=== PATIENT | female | born 1945 | race Caucasian/White ===

== ENCOUNTER 2020-07-23 07:07 | Inpatient (IN) | payer MEDICARE ==
[~2020-07-23 07:07] MED LIST: Povidone-Iodine 10% Soln 118.25 ML Bottle ONE
[2020-07-23] MEDS ORDERED: Midazolam 1 MG/ML 2 ML SDV ONE ×2 (07:28→12:34)
[2020-07-23] MEDS ORDERED: fentaNYL 100 MCG/2 ML SDV ONE ×4 (07:28→13:10)
[2020-07-23] MEDS ORDERED: Propofol 200 MG/20 ML SDV ONE ×4 (07:28→12:44)
[2020-07-23] MEDS ORDERED: Lactated Ringers 1,000 ML IV SCH (07:30)
[2020-07-23] MEDS: Nozin Nasal Sanitizer NASBOTH SCH ×2 (07:59→20:21)
[2020-07-23] MEDS ORDERED: ceFAZolin 2 GM in Premix Bag 1 BAG IV ONE (08:30)
[2020-07-23] MEDS ORDERED: Lactated Ringers 1,000 ML ONE (12:37)
[2020-07-23] MEDS ORDERED: Acetaminophen/HYDROcodone 325-5 MG Tab PO PRN (14:05)
[2020-07-23] MEDS ORDERED: Morphine 2 MG/ML SYRINGE IVPUSH PRN (14:05)
[2020-07-23] MEDS ORDERED: Acetaminophen 325 MG Tab PO PRN (14:05)
[2020-07-23] MEDS ORDERED: FAMCICLOVIR 1500 MG PO PRN (14:12)
[2020-07-23] MEDS: Acetaminophen/oxyCODONE 325-5 MG Tab PO PRN (15:02)
--- NOTE | 2020-07-23 15:02 | CR ---
Knee 1V or 2V Rt CLINICAL HISTORY: Postop FINDINGS: Patient is status post recent 3 component total arthroplasty. Components appear well seated. There is intra-articular subcutaneous air. Impression: Status post total knee arthroplasty
[2020-07-23] MEDS: Ketorolac 30 MG/ML SDV IVPUSH SCH (16:43)
[2020-07-23] MEDS: ceFAZolin 1 GM in Premix Bag 1 BAG IV SCH (17:26)
[2020-07-23] MEDS: Sodium Chloride 0.9% 1,000 ML IV SCH (18:30)
[2020-07-23] MEDS: Docusate Sodium 100 MG Cap PO SCH (20:21)
[2020-07-23] MEDS ORDERED: Nozin Nasal Sanitizer NASBOTH SCH (21:00)
[2020-07-24] MEDS: Ketorolac 30 MG/ML SDV IVPUSH SCH ×4 (02:01→23:55)
[2020-07-24] MEDS: ceFAZolin 1 GM in Premix Bag 1 BAG IV SCH ×2 (02:01→08:50)
[2020-07-24] MEDS: Sodium Chloride 0.9% 1,000 ML IV SCH (02:03)
[2020-07-24] MEDS: Acetaminophen/oxyCODONE 325-5 MG Tab PO PRN ×3 (06:05→20:07)
[2020-07-24] MEDS: Nozin Nasal Sanitizer NASBOTH SCH ×2 (08:51→20:10)
[2020-07-24] MEDS: Enoxaparin 30 MG/0.3 ML Syringe SUBCUT SCH (08:52)
[2020-07-24] MEDS: Docusate Sodium 100 MG Cap PO SCH ×2 (08:52→20:11)
--- NOTE | 2020-07-24 15:14 | PCM.SURGPN ---
- General Info Date of Service: 07/24/20 Date of Surgery/Procedure: 07/23/20 POD#: 1 Post-Op Diagnosis: Right Knee Osteoarthritis Functional Status: Reports: Pain Controlled, Tolerating Diet, Ambulating, Urinating - Review of Systems General: Reports: No Symptoms HEENT: Reports: No Symptoms Pulmonary: Reports: No Symptoms Cardiovascular: Reports: No Symptoms Gastrointestinal: Reports: No Symptoms Genitourinary: Reports: No Symptoms Musculoskeletal: Reports: Joint Pain (Right Knee ) Skin: Reports: No Symptoms Neurological: Reports: No Symptoms Psychiatric: Reports: No Symptoms - Patient Data Vitals - Most Recent: Last Vital Signs Temp 97.7 F 07/24/20 11:15 Pulse 77 07/24/20 11:15 Resp 16 07/24/20 11:15 BP 128/56 L 07/24/20 11:15 Pulse Ox 96 07/24/20 11:15 Weight - Most Recent: 144 lb I&O - Last 24 Hours: Intake & Output 07/24/20 07/24/20 07/24/20 06:59 14:59 22:59 Intake Total 650 1000 Output Total 400 1450 Balance 250 -450 Lab Results Last 24 Hrs: Laboratory Results - last 24 hr 07/24/20 Range/Units 05:00 WBC 5.2 (4.5-11.0) K/uL RBC 3.08 L (3.30-5.50) M/uL Hgb 8.4 L (12.0-15.0) g/dL Hct 26.6 L (36.0-48.0) % MCV 86 (80-98) fL MCH 27 (27-31) pg MCHC 32 (32-36) % Plt Count 300 (150-400) K/uL Neut % (Auto) 60 (36-66) % Lymph % (Auto) 22 L (24-44) % [place] % (Auto) 18 H (2-6) % Eos % (Auto) 1 L (2-4) % Baso % (Auto) 0 (0-1) % Med Orders - Current: Current Medications Acetaminophen (Tylenol) 650 mg PO Q4H PRN PRN Reason: Pain/Fever Hydrocodone Bitart/Acetaminophen ([place] 325-5 Mg) 2 tab PO Q4H PRN PRN Reason: Pain (mild 1-3) Bandage/Support Products ( Nasal Performance Engineer) 1 applic NASBOTH BID ON LICENSE OF [facility] Stop: 07/29/20 21:01 Last Admin: 07/24/20 08:51 Dose: 1 applic Documented by: Docusate Sodium (Colace) 100 mg PO BID ON LICENSE OF [facility] Last Admin: 07/24/20 08:52 Dose: 100 mg Documented by: Enoxaparin Sodium (Lovenox) 30 mg SUBCUT DAILY ON LICENSE OF [facility] Last Admin: 07/24/20 08:52 Dose: 30 mg Documented by: Ketorolac Tromethamine (Toradol) 15 mg IVPUSH Q8H ON LICENSE OF [facility] Stop: 07/25/20 08:01 Last Admin: 07/24/20 08:51 Dose: 15 mg Documented by: Morphine Sulfate (Morphine) 2 mg IVPUSH Q1H PRN PRN Reason: Breakthrough Pain Famciclovir 1,500 Mg (Ptom) 0 mg PO ASDIRECTED PRN PRN Reason: cold sore Oxycodone/Acetaminophen (Percocet 325-5 Mg) 1 - 2 tab PO Q4H PRN PRN Reason: Pain (moderate 4-6) Last Admin: 07/24/20 11:14 Dose: 2 tab Documented by: Discontinued Medications Fentanyl (Sublimaze) Confirm Administered Dose 100 mcg .ROUTE .STK-MED ONE Stop: 07/23/20 07:29 Fentanyl (Sublimaze) Confirm Administered Dose 100 mcg .ROUTE .STK-MED ONE Stop: 07/23/20 12:35 Fentanyl (Sublimaze) Confirm Administered Dose 100 mcg .ROUTE .STK-MED ONE Stop: 07/23/20 12:44 Fentanyl (Sublimaze) Confirm Administered Dose 100 mcg .ROUTE .STK-MED ONE Stop: 07/23/20 13:11 Lactated Ringer's (Ringers, Lactated) 1,000 mls @ 75 mls/hr IV ASDIRECTED ON LICENSE OF [facility] Last Admin: 07/23/20 08:28 Dose: 75 mls/hr Documented by: Cefazolin Sodium/Dextrose 2 gm (/ Premix) 50 mls @ 100 mls/hr IV ONETIME ONE Stop: 07/23/20 08:59 Last Admin: 07/23/20 10:21 Dose: 100 mls/hr Documented by: Lactated Ringer's (Ringers, Lactated) Confirm Administered Dose 1,000 mls @ as directed .ROUTE .STK-MED ONE Stop: 07/23/20 12:38 Sodium Chloride (Normal Saline) 1,000 mls @ 125 mls/hr IV ASDIRECTED ON LICENSE OF [facility] Last Admin: 07/24/20 02:03 Dose: 125 mls/hr Documented by: Cefazolin Sodium/Dextrose 1 gm (/ Premix) 50 mls @ 100 mls/hr IV Q8H ON LICENSE OF [facility] Stop: 07/24/20 09:29 Last Admin: 07/24/20 08:50 Dose: 100 mls/hr Documented by: Midazolam HCl (Versed 1 Mg/Ml) Confirm Administered Dose 2 mg .ROUTE .STK-MED ONE Stop: 07/23/20 07:29 Midazolam HCl (Versed 1 Mg/Ml) Confirm Administered Dose 2 mg .ROUTE .STK-MED ONE Stop: 07/23/20 12:35 Povidone Iodine (Betadine 10% Soln) Confirm Administered Dose 1 ml .ROUTE .STK- MED ONE Stop: 07/23/20 06:54 Last Admin: 07/23/20 11:00 Dose: 30 ml Documented by: Propofol (Diprivan 20 Ml) Confirm Administered Dose 200 mg .ROUTE .STK-MED ONE Stop: 07/23/20 07:29 Propofol (Diprivan 20 Ml) Confirm Administered Dose 200 mg .ROUTE .STK-MED ONE Stop: 07/23/20 10:45 Propofol (Diprivan 20 Ml) Confirm Administered Dose 200 mg .ROUTE .STK-MED ONE Stop: 07/23/20 12:16 Propofol (Diprivan 20 Ml) Confirm Administered Dose 200 mg .ROUTE .STK-MED ONE Stop: 07/23/20 12:45 - Exam Wound/Incisions: Dressing Dry and Intact, No Drainage General: Alert, Oriented, Cooperative Extremities: Joint Swelling (Right Knee ), Limited Range of Motion (Right Knee ) Skin: Dry, Intact Neurological: No New Focal Deficit Psy/Mental Status: Alert, Normal Affect, Normal Mood Sepsis Event Note - Evaluation Sepsis Screening Result: No Definite Risk - Focused Exam Vital Signs: Vital Signs Temp Pulse Resp BP Pulse Ox 07/24/20 11:15 97.7 F 77 16 128/56 L 96 07/24/20 07:17 98.2 F 81 18 108/54 L 94 L - Problem List & Annotations (1) Status post total knee replacement SNOMED Code(s): 1652838883006, 717003693, 5584789787993 Code(s): Z96.659 - PRESENCE OF UNSPECIFIED ARTIFICIAL KNEE JOINT Status: Acute Current Visit: Yes Qualifiers: Laterality: right Qualified Code(s): Z96.651 - Presence of right artificial knee joint - Problem List Review Problem List Initiated/Reviewed/Updated: Yes - My Orders Last 24 Hours: Active Orders 24 hr Category Date Time Status Admission Status [Patient Status] [ADT] Routine ADT 07/24/20 14:06 Active Ambulate [RC] QID Care 07/23/20 14:05 Active Antiembolic Devices [RC] .Routine Care 07/23/20 14:06 Active Head of Bed Elevation [RC] ASDIRECTED Care 07/23/20 14:05 Active May Shower [RC] ASDIRECTED Care 07/23/20 14:05 Active Neurovascular Check [RC] Q4H Care 07/23/20 14:05 Active Notify Provider Vital Signs [RC] ASDIRECTED Care 07/23/20 14:05 Active Oxygen Therapy [RC] PRN Care 07/23/20 14:05 Active Pneumonia Education [RC] UPON Care 07/23/20 14:05 Active RT Incentive Spirometry [RC] Q1HWA Care 07/23/20 14:05 Active Remove Multani Catheter [Urinary Catheter Removal] [RC] Care 07/24/20 14:34 Active PER UNIT ROUTINE Up to Chair [RC] QID Care 07/23/20 14:05 Active VTE/DVT Education [RC] Click to Edit Care 07/23/20 14:06 Active Vital Signs [RC] PER UNIT ROUTINE Care 07/23/20 14:05 Active Wound Care [RC] Q12H Care 07/23/20 14:05 Active Consult to Case Management/Hydroelectric Plant Maintainer [CONS] Cons 07/23/20 14:05 Active Routine OT Evaluation and Treatment [CONS] Routine Cons 07/23/20 14:05 Active PT Evaluation and Treatment [CONS] Routine Cons 07/23/20 14:05 Active PT Evaluation and Treatment [CONS] Routine Cons 07/23/20 14:05 Active Regular Diet [DIET] Diet 07/23/20 Dinner Active Acetaminophen [TylenoL] Med 07/23/20 14:05 Active 650 mg PO Q4H PRN Acetaminophen/HYDROcodone [[place] 325-5 MG] Med 07/23/20 14:05 Active 2 tab PO Q4H PRN Acetaminophen/oxyCODONE [Percocet 325-5 MG] Med 07/23/20 14:05 Active 1 - 2 tab PO Q4H PRN Docusate Sodium [Colace] Med 07/23/20 21:00 Active 100 mg PO BID Enoxaparin [Lovenox] Med 07/24/20 09:00 Active 30 mg SUBCUT DAILY Famciclovir [Famvir] Med 07/23/20 14:12 Active 0 mg PO ASDIRECTED PRN Ketorolac [Toradol] Med 07/23/20 16:00 Active 15 mg IVPUSH Q8H Morphine Med 07/23/20 14:05 Active 2 mg IVPUSH Q1H PRN Antiembolic Hose [OM.PC] Routine Oth 07/23/20 14:05 Ordered Convert IV to Saline Lock [OM.PC] Routine Oth 07/24/20 14:31 Ordered DVT/VTE Prophylaxis Reflex [OM.PC] Routine Oth 07/23/20 14:05 Ordered Ice Therapy [OM.PC] Per Unit Routine Oth 07/23/20 14:05 Ordered Medication Continuation Instructions [OM.PC] Per Unit Oth 07/23/20 14:05 Ordered Routine Oral Care [OM.PC] Routine Oth 07/23/20 14:05 Ordered Sequential Compression Device [OM.PC] Routine Oth 07/23/20 14:05 Ordered Resuscitation Status Routine Resus Stat 07/23/20 14:05 Ordered Medication Orders Acetaminophen (Tylenol) 650 mg PO Q4H PRN PRN Reason: Pain/Fever Hydrocodone Bitart/Acetaminophen ([place] 325-5 Mg) 2 tab PO Q4H PRN PRN Reason: Pain (mild 1-3) Bandage/Support Products ( Nasal Performance Engineer) 1 applic NASBOTH BID ON LICENSE OF [facility] Stop: 07/29/20 21:01 Last Admin: 07/24/20 08:51 Dose: 1 applic Documented by: Admin: 07/23/20 20:21 Dose: 1 applic Documented by: Admin: 07/23/20 07:59 Dose: 1 applic Documented by: GENIA Docusate Sodium (Colace) 100 mg PO BID ON LICENSE OF [facility] Last Admin: 07/24/20 08:52 Dose: 100 mg Documented by: Admin: 07/23/20 20:21 Dose: 100 mg Documented by: TUCKER Enoxaparin Sodium (Lovenox) 30 mg SUBCUT DAILY ON LICENSE OF [facility] Last Admin: 07/24/20 08:52 Dose: 30 mg Documented by: CINDY Ketorolac Tromethamine (Toradol) 15 mg IVPUSH Q8H ON LICENSE OF [facility] Stop: 07/25/20 08:01 Last Admin: 07/24/20 08:51 Dose: 15 mg Documented by: Admin: 07/24/20 02:01 Dose: 15 mg Documented by: Admin: 07/23/20 16:43 Dose: 15 mg Documented by: KATINA Morphine Sulfate (Morphine) 2 mg IVPUSH Q1H PRN PRN Reason: Breakthrough Pain Famciclovir 1,500 Mg (Ptom) 0 mg PO ASDIRECTED PRN PRN Reason: cold sore Oxycodone/Acetaminophen (Percocet 325-5 Mg) 1 - 2 tab PO Q4H PRN PRN Reason: Pain (moderate 4-6) Last Admin: 07/24/20 11:14 Dose: 2 tab Documented by: Admin: 07/24/20 06:05 Dose: 2 tab Documented by: Admin: 07/23/20 15:02 Dose: 2 tab Documented by: ALIYAH - Assessment Assessment (Free Text/Narrative):: Patient is a pleasant 75 y/o female, POD#1, s/p right total knee replacement. Patient tolerated surgery well. Dressing was changed yesterday evening by nursing staff due to bloody drainage on the ZAIN wrap; new dressing applied and remains dry and intact, no reports of drainage since. Pain is being well managed at this time. Is tolerating regular diet well with no nausea or emesis. Multani was removed and IV was saline locked this afternoon. Patient ambulated 180 ft with FWW with physical therapy today. Completed occupational therapy session today; patient able to complete ADLs with proper assistive equipment- would like to go home with a sock music pastor. Patient status changed from same day surgery to inpatient to monitor wound and incision after the breakthrough bleeding, as well as to provide additional mobility monitoring and assistance from physical therapy to ensure safety at home prior to discharge. Plan: -Dressing change to be performed by orthopedic provider tomorrow morning -Continue with PT and OT services while in the hospital -Anticipate discharge to home tomorrow morning with referral for home health services and home physical therapy
[2020-07-25] MEDS: Ketorolac 30 MG/ML SDV IVPUSH SCH (07:22)
[2020-07-25] MEDS: Enoxaparin 30 MG/0.3 ML Syringe SUBCUT SCH (08:16)
[2020-07-25] MEDS: Docusate Sodium 100 MG Cap PO SCH (08:17)
[2020-07-25] MEDS: Nozin Nasal Sanitizer NASBOTH SCH (09:26)
--- NOTE | 2020-07-25 12:27 | PCM.DCSUM1 ---
Discharge Summary - Hospital Course Free Text/Narrative:: 75 year old female with history of progressive right knee pain admitted for knee arthroplasty. Diagnosis: Stroke: No Modified [place] Scale: No Symptoms at All Modified Gerber Scale Score: 0 - Discharge Data Discharge Date: 07/25/20 Discharge Disposition: Home, W Home Health Agency 06 Condition: Good - Referral to Home Health Date of Face to Face Encounter: 07/25/20 Reason for Homebound Status: Able to d/c safely to home, spouse able to assist. Referral for home health for additional assistance with dressing change, PT Primary Care Physician: Ra Sarkar MD Skilled Need: ADLs, dressing change, PT - Patient Summary/Data Operative Procedure(s) Performed: right total knee arthroplasty Complications: Conversion of unicompartmental arthroplasty to total knee Consults: Consultations 07/23/20 14:05 Consult to Case Management/Hospital Television Rental Clerk [CONS] Routine Comment: Physician Instructions: Service(s) to be Consulted: Case Management Reason for Consult: Plan for Discharge OT Evaluation and Treatment [CONS] Routine Please Evaluate and Treat. OT Reason for Consult: ADL's This query below is only for informational purposes and is not editable. PT Evaluation and Treatment [CONS] Routine Please Evaluate and Treat. PT Reason for Consult: Post op Ortho Surgery This query below is only for informational purposes and is not editable. PT Evaluation and Treatment [CONS] Routine Please Evaluate and Treat. PT Reason for Consult: Post op Ortho Surgery Knee Pending Discharge: Yes, 1- 2 days Special Instructions: Schedule first outpatient PT appointment in 3-5 day post discharge. This query below is only for informational purposes and is not editable. Hospital Course: Patient tolerated the procedure very well and and had no problems post operatively. Pain was fairly well controlled and she was ambulating on the afternoon of surgery. Had some bleeding through the the post op dressing and the dressing was changed the evening of surgery. She did very well with PT and was up in the castaneda on POD #1. Continued to monitor dressing and wound through the day and no further bleeding occurred. Dressing was changed again on POD #2 and the incision was clean and dry. Moderate swelling in the knee. She was independent with transfers and walking 200ft prior to discharge. She is discharged to home with Home Health to follow for PT, etc. Follow up in Ortho Clinic in 2 weeks. - Patient Instructions Diet: Regular Diet as Tolerated Activity: Apply Ice, As Tolerated, Full Weight Bearing Driving: Do Not Drive Showering/Bathing: Shower in AM Wound/Incision Care: Keep Operative Site/Wound Site Clean and Dry Notify Provider of: Fever, Increased Pain, Swelling and Redness, Drainage, Nausea and/or Vomiting - Discharge Plan *PRESCRIPTION DRUG MONITORING PROGRAM REVIEWED*: Not Applicable *COPY OF PRESCRIPTION DRUG MONITORING REPORT IN PATIENT CARSON: Not Applicable Prescriptions/Med Rec: Acetaminophen/oxyCODONE [Percocet 325-5 MG] 1 - 2 each PO Q6HR 7 Days #50 tab oxyCODONE HCl/Acetaminophen [Percocet 5-325 mg Tablet] 1 - 2 each PO Q6HR PRN #50 tablet PRN Reason: Pain Home Medications: Home Meds Aspirin [Halfprin] 325 mg PO BID 03/28/20 [History] Calcium Carbonate/Vitamin D3 [Calcium 600 + Vit D 200] 1 each PO DAILY 03/28/20 [History] Cholecalciferol (Vitamin D3) [Vitamin D3] 2,000 unit PO BID 03/28/20 [History] Famciclovir [Famvir] 1,500 mg PO ASDIRECTED PRN 03/28/20 [History] Multivitamin with Minerals [Multiple Vitamin] 1 tab PO DAILY 03/28/20 [History] [place]-3 Fatty Acids [Maxepa] 1,200 mg PO DAILY 03/28/20 [History] Glucosamine [Glucosamine Sulfate] 500 mg PO DAILY 03/29/20 [History] Acetaminophen/oxyCODONE [Percocet 325-5 MG] 1 - 2 each PO Q6HR 7 Days #50 tab 07/25/20 [Rx] oxyCODONE HCl/Acetaminophen [Percocet 5-325 mg Tablet] 1 - 2 each PO Q6HR PRN #50 tablet 07/25/20 [Rx] Oxygen Therapy Mode: Room Air Patient Handouts: Total Knee Replacement, Care After, [id number] Referrals: Panchito Prajapati MD [Physician] - 08/07/20 1:45 pm (Please arrive 15 minutes early to register for your appointment. ) - Discharge Summary/Plan Comment DC Time >30 min.: No - General Info Functional Status: Reports: Pain Controlled, Tolerating Diet, Ambulating, Urinating - Review of Systems General: Reports: No Symptoms HEENT: Reports: No Symptoms Pulmonary: Reports: No Symptoms Cardiovascular: Reports: No Symptoms Gastrointestinal: Reports: No Symptoms Genitourinary: Reports: No Symptoms Musculoskeletal: Reports: Leg Pain Skin: Reports: No Symptoms Neurological: Reports: No Symptoms Psychiatric: Reports: No Symptoms - Patient Data Vitals - Most Recent: Last Vital Signs Temp 36.0 C L 07/25/20 11:08 Pulse 75 07/25/20 11:08 Resp 16 07/25/20 11:08 BP 121/51 L 07/25/20 11:08 Pulse Ox 97 07/25/20 11:08 Weight - Most Recent: 65.317 kg I&O - Last 24 hours: Intake & Output 07/24/20 07/25/20 07/25/20 22:59 06:59 14:59 Intake Total 1480 740 Output Total 149 436 5309 Balance 880 -100 -660 Med Orders - Current: Current Medications Acetaminophen (Tylenol) 650 mg PO Q4H PRN PRN Reason: Pain/Fever Hydrocodone Bitart/Acetaminophen ([place] 325-5 Mg) 2 tab PO Q4H PRN PRN Reason: Pain (mild 1-3) Bandage/Support Products ( Nasal Rock Wool Insulator) 1 applic NASBOTH BID [facility] Stop: 07/29/20 21:01 Last Admin: 07/25/20 09:26 Dose: 1 applic Documented by: Docusate Sodium (Colace) 100 mg PO BID [facility] Last Admin: 07/25/20 08:17 Dose: 100 mg Documented by: Enoxaparin Sodium (Lovenox) 30 mg SUBCUT DAILY [facility] Last Admin: 07/25/20 08:16 Dose: 30 mg Documented by: Morphine Sulfate (Morphine) 2 mg IVPUSH Q1H PRN PRN Reason: Breakthrough Pain Famciclovir 1,500 Mg (Ptom) 0 mg PO ASDIRECTED PRN PRN Reason: cold sore Oxycodone/Acetaminophen (Percocet 325-5 Mg) 1 - 2 tab PO Q4H PRN PRN Reason: Pain (moderate 4-6) Last Admin: 07/24/20 20:07 Dose: 2 tab Documented by: Discontinued Medications Fentanyl (Sublimaze) Confirm Administered Dose 100 mcg .ROUTE .STK-MED ONE Stop: 07/23/20 07:29 Fentanyl (Sublimaze) Confirm Administered Dose 100 mcg .ROUTE .STK-MED ONE Stop: 07/23/20 12:35 Fentanyl (Sublimaze) Confirm Administered Dose 100 mcg .ROUTE .STK-MED ONE Stop: 07/23/20 12:44 Fentanyl (Sublimaze) Confirm Administered Dose 100 mcg .ROUTE .STK-MED ONE Stop: 07/23/20 13:11 Lactated Ringer's (Ringers, Lactated) 1,000 mls @ 75 mls/hr IV ASDIRECTED [facility] Last Admin: 07/23/20 08:28 Dose: 75 mls/hr Documented by: Cefazolin Sodium/Dextrose 2 gm (/ Premix) 50 mls @ 100 mls/hr IV ONETIME ONE Stop: 07/23/20 08:59 Last Admin: 07/23/20 10:21 Dose: 100 mls/hr Documented by: Lactated Ringer's (Ringers, Lactated) Confirm Administered Dose 1,000 mls @ as directed .ROUTE .[facility] ONE Stop: 07/23/20 12:38 Sodium Chloride (Normal Saline) 1,000 mls @ 125 mls/hr IV ASDIRECTED [facility] Last Admin: 07/24/20 02:03 Dose: 125 mls/hr Documented by: Cefazolin Sodium/Dextrose 1 gm (/ Premix) 50 mls @ 100 mls/hr IV Q8H [facility] Stop: 07/24/20 09:29 Last Admin: 07/24/20 08:50 Dose: 100 mls/hr Documented by: Ketorolac Tromethamine (Toradol) 15 mg IVPUSH Q8H [facility] Stop: 07/25/20 08:01 Last Admin: 07/25/20 07:22 Dose: 15 mg Documented by: Midazolam HCl (Versed 1 Mg/Ml) Confirm Administered Dose 2 mg .ROUTE .STK-MED ONE Stop: 07/23/20 07:29 Midazolam HCl (Versed 1 Mg/Ml) Confirm Administered Dose 2 mg .ROUTE .STK-MED ONE Stop: 07/23/20 12:35 Povidone Iodine (Betadine 10% Soln) Confirm Administered Dose 1 ml .ROUTE .STK- MED ONE Stop: 07/23/20 06:54 Last Admin: 07/23/20 11:00 Dose: 30 ml Documented by: Propofol (Diprivan 20 Ml) Confirm Administered Dose 200 mg .ROUTE .STK-MED ONE Stop: 07/23/20 07:29 Propofol (Diprivan 20 Ml) Confirm Administered Dose 200 mg .ROUTE .STK-MED ONE Stop: 07/23/20 10:45 Propofol (Diprivan 20 Ml) Confirm Administered Dose 200 mg .ROUTE .STK-MED ONE Stop: 07/23/20 12:16 Propofol (Diprivan 20 Ml) Confirm Administered Dose 200 mg .ROUTE .STK-MED ONE Stop: 07/23/20 12:45 - Exam General: Reports: Alert, Oriented HEENT: Reports: Pupils Equal, Pupils Reactive, EOMI, Mucous Membr. Moist/[place] Neck: Reports: Supple Lungs: Reports: Normal Respiratory Effort Cardiovascular: Reports: Regular Rate, Regular Rhythm GI/Abdominal Exam: Normal Bowel Sounds, Soft, Non-Tender, No Distention (Female) Exam: Deferred Rectal (Female) Exam: Deferred Back Exam: Reports: Normal Inspection Extremities: Joint Swelling, Limited Range of Motion Wound/Incisions: Reports: Healing Well, No Drainage Neurological: Reports: No New Focal Deficit Psy/Mental Status: Reports: Alert, Normal Affect, Normal Mood
--- NOTE | 2020-07-31 15:02 | OR ---
DATE OF PROCEDURE: 07/23/2020 SURGEON: Panchito Prajapati MD PREOPERATIVE DIAGNOSIS: Osteoarthritis, right knee. POSTOPERATIVE DIAGNOSES: 1. Osteoarthritis, right knee. 2. Osteoporosis. PROCEDURE: Right total knee arthroplasty. FILTERING MACHINE TENDER: SAMANTHA Batista ANESTHESIA: Spinal with sedation. INDICATIONS: Jed is a pleasant 75-year-old female with a history of progressive right knee pain. X-rays and examination are consistent with osteoarthritis of the right knee, predominantly lateral compartment. She presents today for partial knee arthroplasty. Risks, benefits, and potential complications of the procedure were discussed including possibility of need for total knee arthroplasty. 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 PROCEDURE IN DETAIL: After adequate anesthesia was obtained, the patient was placed supine with the right upper thigh tourniquet. Right leg was prepped and draped in a sterile fashion. A longitudinal incision was made over the anterior knee from the superior border of the patella to just below the joint line. This was carried down to the subcutaneous tissues, and a medial parapatellar arthrotomy was performed. Anterior horn of the medial meniscus was excised along with the anterior lip of the tibia. The extramedullary alignment jig was placed, aligned, and secured to the tibia and femur. Distal femoral cut was made. This portion of the guide was removed. The knee was flexed, and the proximal tibia was then resected with a combination of oscillating and reciprocating saws. During resection of both the femur and the tibia, the bone quality was noted to be quite soft and osteoporotic. The remaining portion of the guide was removed, and the remaining meniscus was excised. The femur was sized, and the appropriate cutting jig was secured to the distal femur. Drill holes were made for the pegs and remaining cuts were then made. The tibia was then sized. Tibial baseplate was pinned in position. Peg holes were drilled, and a trial reduction was then done. It should be noted here that during placement of the femoral trial, the bone was again noted to be osteoporotic, and the trial subsided into the femur by approximately a millimeter. The trial components were removed. The knee was thoroughly irrigated, and bone surfaces were dried. The components were cemented in place, and the knee was held in full extension with the trial tibial surface as cement cured. Upon trialing the tibial surfaces, it was noted that the knee continued to have valgus alignment. At this point, there was concern that the medial compartment had been done rather than the lateral compartment, and office notes and medical records were checked for diagnosis and planned procedure. It was confirmed that she was noted to have lateral compartment collapse and that the original plan had been for a lateral unicompartmental arthroplasty with the possibility of a total knee. While it would have been technically possible to continue with the addition of a lateral unicompartmental arthroplasty, this is typically not recommended and due to her osteoporotic bone, it was felt that a total knee arthroplasty would be a much better option for her. The total knee arthroplasty instruments were then opened, and a combination of small flat and curved osteotomes were used to remove the medial unicompartmental implants. The incision was extended proximally into the quadriceps tendon to gain access to the lateral compartment of the joint and the patella. The posterior aspect of the patella was resected with an oscillating saw and measured to 32 mm. The intramedullary canal of the femur was drilled. Intramedullary guide was placed, and the lateral condyle was then resected. The femur was sized to a #6 component. A 6 cutting jig was placed, and remaining cuts were then made. This included intercondylar notch cut for a posterior cruciate sacrificing component and drill holes for the femoral implant pegs. Attention then was turned to the tibia. Extramedullary tibial guide was placed, and utilizing a comma guide for alignment with the previous tibial resection, the remaining tibia was resected along with the lateral meniscus. The tibial baseplate was sized, metaphysis was drilled, and the cutting guide was used for the fins. The knee was thoroughly irrigated. Bone surfaces were dried, and then the components were cemented in place, and excess cement was removed. The knee was held in extension with the trial implant as cement cured. As the cement was curing, it was noted that the tibial component had fallen into internal rotation. Trial reductions were made with tibial polyethylene, and due to the rotation, components were malaligned and caused significant malalignment of the patella. This could not be corrected with any soft tissue measures. At that point, the decision was made that the tibial component would need to be revised. It was apparent that the component had fallen into internal rotation due to the medial fin falling into the defect in the medial compartment from the previous removal of the unicompartmental component. Using combination of osteotomes, the tibia was removed. It was resized, and a trial component was assembled with a short stem. The component again wanted to fall into internal rotation. Portions of bone that had been resected for the arthroplasty were trimmed down to size with a rongeur and placed into the defect in the medial metaphysis to prevent rotation. The bone graft was impacted into position. The trial component was then removed after marking the appropriate rotational position. The knee was irrigated once again. The new tibial component was then cemented in place, taking care to keep it in proper rotational alignment. This was again held in full extension as the cement cured with the trial insert. Once this was completed, the patella tracked well, and overall alignment was correct. The trial was removed. The final polyethylene was secured, and the knee was again taken through range of motion. Knee has had full extension and good balance in flexion and extension. The patella did have a slight tendency for lateral tracking, and a lateral release was performed. The knee was irrigated once again including a dilute Betadine irrigation, which was left in place for 2-1/2 minutes. This was irrigated, and the knee was then closed with #2 Ethibond in interrupted fashion in the capsule. After this layer was closed, the knee was again taken through range of motion. It was found to have good patellar tracking and flexion easily to 120 degrees. The skin was then closed with 2-0 Vicryl and a running 3-0 Monocryl. Steri-Strips were applied. Light compressive dressing was then placed. The patient tolerated the procedure very well. The tourniquet was let down during a portion of the procedure due to excessive tourniquet time and then reinflated for final cementing. She was taken from the operating room in stable condition. Panchito Prajapati MD /[id number] DAVID
== END 2020-07-25 13:10 | disposition home health service (06) | DRG 470 ==
LOC: JP.MS 07:07 → JP.SDS 07:07 → EDSTATUS 07:30 → JP.MS 14:05 → UNDOADMIN 14:05 → JP.SDS 07-24 14:05 → JP.MS 07-24 14:06 → UNDODISIN 07-25 13:10
PROVIDERS: ADMIT Specialist; ATTEND Specialist
PROC: 0SRC0J9 Replacement of Right Knee Joint with Synthetic Substitute, Cemented, Open Approach (ICD-10-PCS; principal; 2020-07-23)
DX: M17.11 Unilateral primary osteoarthritis, right knee (principal); E78.5 Hyperlipidemia, unspecified; E21.3 Hyperparathyroidism, unspecified; M81.0 Age-related osteoporosis without current pathological fracture; Z20.822 Contact with and (suspected) exposure to COVID-19; Z79.82 Long term (current) use of aspirin
CPT/HCPCS: 36415; 73560-26-RT; 73560-RT; 85025; 86850; 86900; 86901; 97110-GP; 97116-GP; 97161-GP; 97165-GO; 97530-GP; 97535-GO; 97535-GP; A9270-GY; C1713; C1776; J0690; J1650; J1885; J2250; J2704; J3010; J7030; J7120

== ENCOUNTER 2021-11-17 13:38 | Emergency (ER) | payer MEDICARE ==
[2021-11-17] MEDS ORDERED: Diphtheria,Pertussis(Acell),Tetanus Vaccine 0.5 ML Syringe IM ONE (14:23)
[2021-11-17] MEDS ORDERED: Bacitracin Oint 1 GM U/D Packet TOP ONE (14:23)
[2021-11-17] MEDS ORDERED: Lidocaine 1% with EPINEPHrine 1:100,000 50 ML MDV INFILT ONE (14:23)
== END 2021-11-17 16:00 | disposition home or self-care (01) ==
LOC: JP.ED 13:38
DX: S61.215A Laceration without foreign body of left ring finger without damage to nail, initial encounter (principal); S61.213A Laceration without foreign body of left middle finger without damage to nail, initial encounter; Z79.82 Long term (current) use of aspirin; Z23 Encounter for immunization; W26.8XXA Contact with other sharp object(s), not elsewhere classified, initial encounter
CPT/HCPCS: 12002; 73140-26-F3; 73140-F3; 90471; 90715; 99281; 99282-25

== ENCOUNTER 2022-11-07 05:54 | Day surgery (SDC) | payer MEDICARE ==
[2022-11-07] MEDS ORDERED: Sodium Chloride 0.9% 1,000 ML IV SCH (06:30)
[2022-11-07] MEDS ORDERED: Propofol 200 MG/20 ML SDV ONE (07:18)
[2022-11-07] MEDS ORDERED: fentaNYL 100 MCG/2 ML SDV ONE (07:18)
== END 2022-11-07 09:10 | disposition home or self-care (01) ==
LOC: JP.SDS 05:54
PROVIDERS: ATTEND Surgery
DX: Z12.11 Encounter for screening for malignant neoplasm of colon (principal); E03.9 Hypothyroidism, unspecified; E21.3 Hyperparathyroidism, unspecified; E78.5 Hyperlipidemia, unspecified; R73.01 Impaired fasting glucose
CPT/HCPCS: 45378; J2704; J3010; J7030